=== PATIENT | female | born 1950 ===

== ENCOUNTER 2018-02-16 06:38 | Day surgery (SDC) | payer OTHER ==
[~2018-02-16 06:38] MED LIST: GABAPENTIN300 MG PO; GABAPENTIN800 MG PO
== END 2018-02-16 14:40 | disposition home or self-care (01) ==
LOC: CIR.AMB 06:38
DX: G56.02 Carpal tunnel syndrome, left upper limb (principal)

== ENCOUNTER 2023-07-18 06:05 | Day surgery (SDC) | payer OTHER ==
[~2023-07-18] VITALS: Ht 157.5 cm; Wt 56.7 kg
[~2023-07-18 06:05] MED LIST changes: +ATORVASTATIN CA20 MG PO
== END 2023-07-18 11:00 | disposition home or self-care (01) ==
LOC: CIR.AMB 06:05
PROVIDERS: ATTEND Orthopaedic Surgery Hand Surgery
DX: M67.431 Ganglion, right wrist (principal); I10 Essential (primary) hypertension; Z20.822 Contact with and (suspected) exposure to COVID-19